=== PATIENT | male | born 1950 | race Caucasian/White ===

== ENCOUNTER → 2019-04-21 12:02 | Outpatient (BNVA) | payer MEDICARE, OTHER, SELFPAY | PROVIDERS: Family Provider Internal Medicine; PCP Internal Medicine; Visit Provider Podiatrist Foot & Ankle Surgery | DX: M19.171 Post-traumatic osteoarthritis, right ankle and foot (principal) | CPT/HCPCS: 73610 ==

== ENCOUNTER 2020-03-22 12:00 | Outpatient (CLI) | payer MEDICARE, OTHER, SELFPAY | END 2020-03-22 12:01 | disposition home or self-care (01) | LOC: SLEEP 03-23 11:21 | PROVIDERS: Family Provider Internal Medicine; PCP Internal Medicine; Visit Provider Internal Medicine | DX: G47.10 Hypersomnia, unspecified (principal) | CPT/HCPCS: G0399 ==

== ENCOUNTER 2020-04-17 07:06 | Outpatient (CLI) | payer MEDICARE, OTHER, SELFPAY ==
--- NOTE | 2020-04-17 07:13 | USCV_ITS ---
MaliAayush Age: 69 Gender: M : 1950 Exam Date: 04/17/2020 07:20 Ordering Phys: Checo Garcia DO Technologist: Minesh Bailey Exam Location: [facility] [place] Indication: CP BP: 120 / 70 HR: 60 Rhythm: Sinus Technical Quality: Fair MEASUREMENTS (Male / Female) Normal Values 2D ECHO LV Diastolic Diameter PLAX 4.0 cm 4.2 - 5.9 / 3.9 - 5.3 cm LV Systolic Diameter PLAX 2.2 cm IVS Diastolic Thickness 0.9 cm 0.6 - 1.0 / 0.6 - 0.9 cm IVS Systolic Thickness 1.4 cm LVPW Diastolic Thickness 1.0 cm 0.6 - 1.0 / 0.6 - 0.9 cm LVPW Systolic Thickness 1.3 cm LVOT Diameter 2.1 cm LV Ejection Fraction 2D Teich 78.2 % LV Ejection Fraction MOD 2C 53.6 % LV Ejection Fraction 2C AL 53.3 % LA Diameter 3.7 cm LA Width 4.2 cm LA Height 5.7 cm RA Width 4.2 cm RA Height 5.5 cm Aorta at Sinotubular Diameter 2.4 cm M-MODE LV Diastolic Diameter MM 5.8 cm 4.2 - 5.9 / 3.9 - 5.3 cm LV Systolic Diameter MM 3.9 cm LV Ejection Fraction MM Teich 60.9 % IVS Diastolic Thickness MM 1.0 cm 0.6 - 1.0 / 0.6 - 0.9 cm IVS Systolic Thickness MM 1.7 cm LVPW Diastolic Thickness MM 1.2 cm 0.6 - 1.0 / 0.6 - 0.9 cm LVPW Systolic Thickness MM 1.9 cm RV Diastolic Diameter MM 1.1 cm Aortic Annulus Diameter 3.1 cm LA Ao Ratio MM 1.2 MV E Point Septal Separation 0.9 cm DOPPLER AV Peak Velocity 106.0 cm/s LVOT Peak Velocity 94.0 cm/s AV Area Cont Eq vti 2.8 cm squared AV Area Cont Eq pk 3.0 cm squared MV Area PHT 5.0 cm squared Mitral E to A Ratio 1.3 MV E' Velocity 43.0 cm/s Mitral E to MV E' Ratio 6.2 Mitral E to LV E' Lateral Ratio 5.8 Mitral E to LV E' Septal Ratio 6.6 TR Peak Velocity 186.3 cm/s TR Peak Gradient 13.9 mmHg TV Peak E Velocity 73.0 cm/s Right Atrial Pressure 3.0 mmHg Pulmonary Artery Systolic Pressu 16.9 mmHg PV Peak Velocity 103.0 cm/s FINDINGS Left Ventricle Normal left ventricular size and systolic function, EF 63 %. No regional wall motion abnormalities. Right Ventricle Normal right ventricular size and systolic function. Right Atrium The right atrium is normal in size. Left Atrium The left atrium is normal in size. Mitral Valve Trace to mild mitral regurgitation Aortic Valve Structurally normal aortic valve without significant sclerosis or stenosis. There is no aortic regurgitation. Tricuspid Valve Trace tricuspid valve regurgitation. Pulmonic Valve Pulmonic valve not well visualized. Pericardium Normal pericardium without effusion. Aorta Normal aortic annulus size. CONCLUSIONS Normal left ventricular size and systolic function, EF 63 %. No regional wall motion abnormalities. Trace to mild mitral regurgitation. Trace tricuspid valve regurgitation. There is no pericardial effusion. There are no intracardiac masses. No previous study is available for comparison. Compared to study from 03/26/2015, there may not be a significant change Dr Abimbola Muñoz MD FAC (Electronically Signed) Final Date: 17 April 2020 14:23 S
[2020-04-17 08:09] VITALS: BMI 30.8
--- NOTE | 2020-04-17 08:12 | NMCV_ITS ---
NM jenni perf SPECT r/s* [id number] Aayush Samson Age: 69 Gender: M : 1950 Exam Date: 04/17/2020 08:12 Ordering Phys: Checo Garcia DO Technologist: NESHA Mcfarland Exam Location: [facility] Indications: SHORTNESS OF BREATH ON EXERTION STRESS TEST Please see separate stress test report in [facility] for full findings IMAGE PROTOCOL Rest/Stress 1 Lexiscan Day Radiopharmaceutical Dose (mCi) Administration Site Administered by Rest: Tc-99m 11.0 IV NESHA Mcfarland Sestamibi Stress:Tc-99m 32.6 IV NESHA Capone Sestamibi Rest: 17-Apr-2020 60 Discovery 630 Stress: 17-Apr-2020 30 Discovery 630 0.4mg Lexiscan. Images obtained in supine and prone position. SPECT RESULTS Technical Quality: Excellent Raw Data Analysis: Normal Image Corrections: No attenuation or motion correction applied Summed Stress Score: 2 Summed Rest Score: 2 Summed Difference Score: 0 PERFUSION FINDINGS There is a small area of fixed perfusion defect in the apical lateral area. No evidence of ischemia is seen FUNCTIONAL RESULTS (calculated via Gated SPECT) Stress Image LV EF (%): 66 Stress EDV (mL):107 TID: 1.19 Stress ESV (mL):36 FUNCTIONAL FINDINGS: There is normal left ventricular systolic function. IMPRESSIONS 1. There is a small, fixed perfusion defect in the apical lateral area. This improves on stress. Likely artifact 2. No evidence of reversibility is seen. No ischemia present. 3. LV systolic function is normal Regino Felix MD (Electronically Signed) Final Date: 17 April 2020 12:50 S
--- NOTE | 2020-04-17 08:12 | ECG_ITS ---
[facility] Test Date: 2020-04-17 Pat Name: Aayush Samson Department: Room: Gender: Male Infection Control Nurse: : 1950 Requested By: Checo Gee Order Number: [id number] Trujillo MD: Regino Felix M.D. Interpretive Statements NAME OF STUDY: LEXISCAN SESTAMIBI STRESS TEST INDICATION: [Shortness of Breath, ] Procedure: At the baseline, the blood pressure was 125/61 mmHg,with a heart rate of 49 bpm. The electrocardiogram showed a sinus bradycardia, normal axis with normal ST and T's. The Lexiscan was infused over a duration of 20 seconds. A total of 0.4 mg of Lexiscan was infused. The stress phase was continued for a total of 5 minutes. Heart rate at the end of stress phase was 61 bpm, with a blood pressure of 119/49 mmHg. The EKG at the peak infusion revealed sinus rhythm with no significant ST-T wave changes. Sestamibi was injected 20 seconds after Lexiscan infusion. Blood pressure at the end of recovery phase was 119/41 mmHg, with a heart rate of 60 bpm. Conclusion: 1. Normal EKG response to Lexiscan infusion. 2. No Lexiscan induced chest pain or cardiac arrhythmia. 3. Normal blood pressure and heart rate response. 4. Sestamibi/sestamibi perfusion scan pending; see separate report. Electronically Signed On 04-28-2020 9:50:22 TALENT ACQUISITION MANAGER by Regino Felix M.D. [id number]
[2020-04-17] MEDS: regadenoson 0.4 Mg/5 ml Syringe IVP (09:50)
[2020-04-17 10:04] VITALS: BP 145/61; PULSE 60
== END 2020-04-17 07:07 | disposition home or self-care (01) ==
PROVIDERS: PCP Internal Medicine; Visit Provider Internal Medicine
DX: R06.02 Shortness of breath (principal); R07.9 Chest pain, unspecified; I08.1 Rheumatic disorders of both mitral and tricuspid valves
CPT/HCPCS: 78452; 93017; 93306; A9500; J2785

== ENCOUNTER → 2021-08-08 08:24 | Outpatient (BNVA) | payer MEDICARE, OTHER, SELFPAY | PROVIDERS: PCP Internal Medicine; Visit Provider Internal Medicine Pulmonary Disease | DX: G47.33 Obstructive sleep apnea (adult) (pediatric) (principal); R00.1 Bradycardia, unspecified; I10 Essential (primary) hypertension; E11.8 Type 2 diabetes mellitus with unspecified complications; E78.5 Hyperlipidemia, unspecified | CPT/HCPCS: 99214 ==

== ENCOUNTER 2022-10-28 18:06 | Emergency (ER) | payer MEDICARE, OTHER, SELFPAY ==
[2022-10-28 18:11] VITALS: BP 139/58; PULSE 85; RESP 12; TEMP 37.3; O2SAT 94; BMI 27.8
--- NOTE | 2022-10-28 18:20 | XRR_ITS ---
PROCEDURE INFORMATION: Exam: XR Chest Exam date and time: 10/28/2022 6:31 PM Age: 72 years old Clinical indication: Fever TECHNIQUE: Imaging protocol: Radiologic exam of the chest. Views: 1 view. COMPARISON: CR XR chest 1V [id number] 08/01/2016 11:59 AM FINDINGS: Lungs: There is no consolidation. Pleural spaces: No pleural effusion or pneumothorax. Heart/Mediastinum: Subcentimeter calcified granulomata lymph nodes scattered throughout both lungs. The heart and mediastinum are normal in size. Bones/joints: Unremarkable. XR/XR chest 1V portable [id number] IMPRESSION: 1. No acute findings. 2. Subcentimeter calcified granulomata or lymph nodes scattered throughout both lungs, stable from the comparison study.
--- NOTE | 2022-10-28 18:22 | W.ED.GENADLT ---
HPI - General Adult General: Chief complaint: General Medical Stated complaint: chills Time Seen by Provider: 10/28/22 18:20 History of Present Illness: 72-year-old male patient comes in today with chills for the last 3 hours. Patient reports no other symptoms. Patient denies any recent exposure to illness. Patient has recently started gabapentin 100 mg at bedtime 3 days ago. Patient reports some body aches. Patient denies any tick bites. Patient denies cough or urinary difficulty. Patient denies nausea, vomiting, diarrhea, or constipation. Patient does have a history of diabetes mellitus, hypertension, and high cholesterol. 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 Associated symptoms: Deny chest pain, dyspnea, headache(s) or rash Review of Systems General: Reports: 10 or more systems reviewed and unremarkable except in HPI and below Const: Reports: chills and body aches Eyes: Denies: change in vision ENMT: Denies: throat pain Card: Denies: chest pain Resp: Denies: dyspnea GI: Denies: abdominal pain : Denies: difficulty urinating Skin/Breast: Denies: rash Neuro: Denies: headache(s) PFS ED PFSH: Medical History Benign essential hypertension Diabetes mellitus Mixed hyperlipidemia Family History Mother Diabetes Denies family history of CAD (coronary artery disease) Clotting disorder Dementia Hyperlipidemia Psychiatric illness Chronic kidney disease (CKD) Suicide Anesthesia complication Bleeding disorder Family history of premature coronary artery disease Lung disease Cancer Hypertension Stroke Social History Smoking and tobacco status: never smoked Second hand smoke exposure: No Smoking risk assessment/counseling performed?: Yes Alcohol intake: current Desire information about alcohol rehabilitation?: No Counseling given: No Substance/Drug Use: never Desire information about substance/drug rehabilitation?: No Counseling given: No Lives independently: Yes Household members: spouse Marital status: service: Yes Current occupational status: employed Pets and animals: Yes Do you think of yourself as: Straight/Heterosexual Current gender identity: Male Physical Exam Const: COMMON NORMALS: alert HENMT: HEAD & SCALP: not normal to inspection THROAT: posterior oropharynx normal Eye: GENERAL EYE: appearance normal, both eyes and all related structures Neck/C-Spine: COMMON NORMALS: full ROM and no meningeal signs Resp: COMMON NORMALS: normal respiratory effort and clear to auscultation bilaterally AUSCULTATION: clear to auscultation bilaterally Cardio: COMMON NORMALS: regular rate and regular rhythm RATE: regular rate RHYTHM: regular rhythm GI: COMMON NORMALS: Soft to palpation and non-tender PALPATION: Yes Soft to palpation Extremity: RIGHT LOWER EXTREMITY: Yes foot & digits (Arthritic, deformed chronic) Neuro: SENSORIUM/ORIENTATION: Yes alert MENINGEAL SIGNS: Yes no meningeal signs Skin: COMMON NORMALS: turgor normal GENERAL SKIN EXAM: turgor normal Course Vital Signs: Vital signs: Vital Signs Temperature 99.1 F 10/28/22 18:11 Pulse Rate 85 10/28/22 18:11 Respiratory Rate 12 10/28/22 18:11 Blood Pressure 139/58 10/28/22 18:11 Pulse Oximetry 94 10/28/22 18:11 Oxygen Delivery Me thod Room Air 10/28/22 18:11 MDM - General Adult Medical Decision Making 72-year-old male patient comes in today for complaints of chills for the last 3 hours. Patient appears nontoxic. Respirations are even lungs are clear to auscultation. Abdomen soft nontender. Patient denies any signs of illness. Patient has recently been started on gabapentin 100 mg daily. Differential diagnosis includes but not limited to viral illness, adverse drug effect, tickborne illness, anxiety, UTI, pneumonia, fever of unknown source. Chest x-ray was unremarkable. CBC showed a mild elevation and white blood cell count at 13,000. CRP was 15. Remainder of labs were unremarkable. COVID antigen test was negative. Urinalysis was clean. Outstanding labs included a respiratory 2 panel, and a tick panel. At this time there is no signs of severe illness and patient reports no recent tick bites. Recommend recheck with primary care in 2 to 3 days for recheck. Also recommended holding gabapentin for the next 2 days to see if that would resolve symptoms. Patient exhibited no high temperature in the ER. Patient reported understanding of care plan for supportive care and need for follow-up. Patient understood to return to ER for worsening symptoms such as nausea vomiting, blood in vomit or stool, or severe shortness of breath or new concerns. Lab Data 10/28/22 18:28 10/28/22 18: Radiology Impressions Chest X-Ray 10/28/22 18:20 IMPRESSION: 1. No acute findings. 2. Subcentimeter calcified granulomata or lymph nodes scattered throughout both lungs, stable from the comparison study. Laboratory Results WBC 13.9 10^3/uL (4.0-10.0) H 10/28/22 18: RBC 5.03 10^6/uL (4.1-5.3) 10/28/22: Hgb 15.8 g/dL (11.7-16.6) 10/28/22: Hct 46.6 % (42.0-52.0) 10/28/22 MCV 92.6 fl (80-94) 10/28/22 MCH 31.4 pg (28.0-34.0) 10/28/22 MCHC 33.9 g/dL (30.0-36.0) 10/28/22 RDW 12.4 % (12.1-15.1) 10/28/22 Plt Count 170 10^3/cmm (130-400) 10/28/22 MPV 9.5 fL (7.4-10.4) 10/28/22 Neut % (Auto) 78.1 % 10/28/22: Lymph % (Auto) 14.2 % 10/28/22: [place] % (Auto) 6.3 % 10/28/22 Eos % (Auto) 0.9 % 10/28/22: Baso % (Auto) 0.2 % 10/28/22 Neut # (Auto) 10.88 10^3/uL (1.8-7.7) H 10/28/22: Lymph # (Auto) 2.0 10^3/uL (0.8-4.8) 10/28/22 [place] # (Auto) 0.9 10^3/uL (0.2-0.9) 10/28/22: Eos # (Auto) 0.1 10^3/uL (0.0-0.8) 10/28/22 18: Baso # (Auto) 0.0 10^3/uL (0.0-0.1) 10/28/22 18: Nucleated RBC % (auto) 0 % 10/28/22 18 Nucleated RBCs # 0.0 /100WBC 10/28/22 18: Sodium 137 mmol/L (136-145) 10/28/22 18: Potassium 3.9 mmol/L (3.5-5.1) 10/28/22: Chloride 101 mmol/L (98-107) 10/28/22 18: Carbon Dioxide 24 mmol/L (22-29) 10/28/22 Anion Gap 15.9 (5-19) 10/28/22 BUN 21 mg/dL (8-23) 10/28/22 18 Creatinine 1.0 mg/dL (0.7-1.2) 10/28/22 18 GFR Calculation Not Reportable 10/28/22 Glucose 100 mg/dL (65-115) 10/28/22 18: Calculated Osmolality 287 mOsm/kg (285-295) 10/28/22 18: Calcium 9.4 mg/dL (8.5-10.5) 10/28/22 18: Total Bilirubin 1.1 mg/dL (0.15-1.2) 10/28/22 18: AST 23 U/L (0-40) 10/28/22: ALT 25 U/L (0-41) 10/28/22 18: Alkaline Phosphatase 73 U/L (40-130) 10/28/22 18: Creatine Kinase 64 U/L (39-308) 10/28/22 18: C-Reactive Protein 15.3 mg/L (0.0-4.9) H 10/28/22 18: Total Protein 7.1 g/dL (6.6-8.7) 10/28/22 18: Albumin 4.3 g/dL (3.5-5.2) 10/28/22 18: Globulin 2.8 g/dL (1.3-4.6) 10/28/22 18: Urine Color Yellow (Yellow) 10/28/22 18:20 Urine Appearance Clear (CLEAR) 10/28/22 18:20 Urine pH 7 (5-7) 10/28/22 18:20 Ur Specific [place] 1.000 (1.005-1.030) L 10/28/22 18:20 Urine Protein Neg (Negative) 10/28/22 18:20 Urine Glucose (UA) Norm (Normal) 10/28/22 18:20 Urine Ketones Negative (Negative) 10/28/22 18:20 Urine Blood Neg (Negative) 10/28/22 18:20 Urine Nitrate Negative (Negative) 10/28/22 18:20 Urine Bilirubin Neg (Negative) 10/28/22 18:20 Urine Urobilinogen Norm mg/dL (Negative) 10/28/22 18:20 Ur Leukocyte Esterase Negative (Negative) 10/28/22 18:20 SARS-CoV-2 Ag (Rapid) negative (Negative) 10/28/22 18:30 Discharge Plan Discharge Patient Disposition: Home Clinical Impression: Fever and chills Condition: Stable Prescriptions: No Action aspirin 81 mg tablet,delayed release (DR/EC) 81 mg PO ONCE carvedilol [Coreg] 3.125 mg tablet 3.125 mg PO BID nitroglycerin [Nitrostat] 0.4 mg tablet, sublingual 0.4 mg SUBLINGUAL Q5M PRN vitamin B complex [B Complex-Vitamin B12] Tablet 1 tab PO ONCE ezetimibe [Zetia] 10 mg tablet 10 mg PO ONCE PreserVision AREDS-2 [id number] st-hldh-lr-mg capsule 1 tab PO BID Rx Instructions: administer with meals lisinopril 10 mg tablet 10 mg PO DAILY azelastine 137 mcg (0.1 %) aerosol,spray 1 spray intranasal BID Rx Instructions: administer into each nostril Discharge Orders: Discharge ED (Routine); Ordered 10/28/22 Ordered By: Thai De Anda Referrals: Checo Garcia DO [Primary Care Provider] - Discharge Diet: Usual diet Discharge Activity: Increase activity as tolerated Patient Instructions: Fever in Adults (ED) Activity Restrictions/Additional Instructions: Outstanding labs include tick panel and viral respiratory 2 panel. At this time drink plenty of water and fluids. Use acetaminophen and ibuprofen as needed for pain and fever. Follow-up with primary care in 2 to 3 days for recheck. Hold gabapentin for 2 to 3 days to see if symptoms resolve. Most likely this is a viral syndrome that run its course in 3 to 5 days however gabapentin has been known to have a common reaction of fever. Holding the gabapentin should have the symptoms resolved within 48 hours. If symptoms persist after the 48 hours more likely is a virus. Return to emergency department for worsening symptoms such as inability to hold fluids down, nausea or vomiting, blood in vomit or stool, or shortness of breath. Coding Level of Care Code ED Bushel Girl for Jessy Baird
[2022-10-28 18:41] LABS: Add Urine Microscopic? NO; Charge for UA Resulting for Rev
[2022-10-28 18:50] LABS: Urine Appearance Clear (CLEAR); Urine Color Yellow (Yellow); pH Urine 7 (5-7)
[2022-10-28 18:51] LABS: Bilirubin Urine Neg (Negative); Blood Urine Neg (Negative); Glucose Urine UA Norm (Normal); Ketones Urine Negative (Negative); Leukocyte Esterase Urine Negative (Negative); Nitrate Urine Negative (Negative); Protein Urine Neg (Negative); Urobilinogen Urine Norm (Negative)
[2022-10-28 18:53] LABS: Basophils % 0.2 %; Eosinophils # 0.1 10^3/uL (0.0-0.8); Eosinophils % 0.9 %; Hematocrit 46.6 % (42.0-52.0); Hemoglobin 15.8 g/dL (11.7-16.6); Lymphocytes % 14.2 %; Mean Corpuscular HGB Conc 33.9 g/dL (30.0-36.0); Mean Corpuscular Hemoglobin 31.4 pg (28.0-34.0); Mean Corpuscular Volume 92.6 fl (80-94); Mean Platelet Volume 9.5 fL (7.4-10.4); Monocytes # 0.9 10^3/uL (0.2-0.9); Monocytes % 6.3 %; Neutrophils # 10.88 10^3/uL (1.8-7.7); Neutrophils % 78.1 %; Nucleated Red Blood Cells % 0 %; Platelet Count 170 10^3/cmm (130-400); Red Blood Count 5.03 10^6/uL (4.1-5.3); Red Cell Distribution Width 12.4 % (12.1-15.1); White Blood Count 13.9 10^3/uL (4.0-10.0)
[2022-10-28 19:06] LABS: Alanine Aminotransferase 25 U/L (0-41); Albumin Level 4.3 g/dL (3.5-5.2); Alkaline Phosphatase 73 U/L (40-130); Anion Gap 15.9 (5-19); Aspartate Amino Transferase 23 U/L (0-40); Blood Urea Nitrogen 21 mg/dL (8-23); C Reactive Protein 15.3 mg/L (0.0-4.9); Calcium 9.4 mg/dL (8.5-10.5); Carbon Dioxide 24 mmol/L (22-29); Chloride 101 mmol/L (98-107); Creatine Phosphokinase 64 U/L (39-308); Globulin 2.8 g/dL (1.3-4.6); Glucose 100 mg/dL (65-115); Osmolality Calculated 287 mOsm/kg (285-295); Potassium 3.9 mmol/L (3.5-5.1); Sodium 137 mmol/L (136-145); Total Bilirubin 1.1 mg/dL (0.15-1.2); Total Protein 7.1 g/dL (6.6-8.7)
[2022-10-28 19:08] LABS: SARS Covid-2 Antigen negative (Negative)
[2022-10-28 19:38] VITALS: BP 119/58; PULSE 68; RESP 16; O2SAT 99
[2022-10-28 21:37] LABS: Adenovirus Not Detected (NOT DETECT); Chlamydia Pneumoniae Not Detected (NOT DETECT); Coronavirus 229E,HKU1,NL63,OC4 Not Detected (NOT DETECT); Human Metapneumovirus Not Detected (NOT DETECT); Human Rhinovirus/Enterovirus Not Detected (NOT DETECT); Influenza A Not Detected (NOT DETECT); Influenza A H1 Not Detected (NOT DETECT); Influenza A H1-2009 Not Detected (NOT DETECT); Influenza A H3 Not Detected (NOT DETECT); Influenza B Not Detected (NOT DETECT); Mycoplasma Pneumoniae Not Detected (NOT DETECT); Parainfluenza Virus Type 1 Not Detected (NOT DETECT); Parainfluenza Virus Type 2 Not Detected (NOT DETECT); Parainfluenza Virus Type 3 Not Detected (NOT DETECT); Parainfluenza Virus Type 4 Not Detected (NOT DETECT); Respiratory Syncytial Virus A Not Detected (NOT DETECT); Respiratory Syncytial Virus B Not Detected (NOT DETECT); SARS-COV-2 Not Detected (NOT DETECT)
[2022-10-30 13:25] LABS: Lyme AB Screen <0.90 index
[2022-11-02 15:19] LABS: E. Chaffeensis AB IGG <1:64; E. Chaffeensis AB IGM <1:20
[2022-11-04 16:54] LABS: RMSF IGG NOT DETECTED; RMSF IGM NOT DETECTED
== END 2022-10-28 19:40 | disposition home or self-care (01) ==
PROVIDERS: Emergency Provider Nurse Practitioner Family; PCP Internal Medicine
DX: R50.9 Fever, unspecified (principal); Z20.822 Contact with and (suspected) exposure to COVID-19; I10 Essential (primary) hypertension; E11.9 Type 2 diabetes mellitus without complications; E78.2 Mixed hyperlipidemia
CPT/HCPCS: 71045; 80053; 81003; 82550; 85025; 86140; 86618; 86666; 86757; 87426; 87486; 87581; 87633; 96372; 99284; J0696

== ENCOUNTER 2022-10-28 21:59 | Emergency (ER) | payer MEDICARE, OTHER, SELFPAY ==
--- NOTE | 2022-10-28 22:08 | ED_ITS ---
HPI - Fever General: Chief Complaint: Skin/Abscess/Foreign Body Stated Complaint: Cellulitius\Pain Time Seen by Provider: 10/28/22 22:00 History of Present Illness: 72-year-old male patient was seen earlier this evening for fever. Patient had just started a fever about 3 hours prior to arrival to the ER. Patient family reports the patient was getting ready for bed and found an area of redness which made them concerned for cellulitis. Patient was come back in for to start antib iotics. Review of Systems Skin/Breast: Reports: erythema PFSH ED PFSH: Medical History Benign essential hypertension Diabetes mellitus Mixed hyperlipidemia Family History Mother Diabetes Denies family history of CAD (coronary artery disease) Clotting disorder Dementia Hyperlipidemia Psychiatric illness Chronic kidney disease (CKD) Suicide Anesthesia complication Bleeding disorder Family history of premature coronary artery disease Lung disease Cancer Hypertension Stroke Social History Smoking and tobacco status: never smoked Second hand smoke exposure: No Smoking risk assessment/counseling performed?: Yes Alcohol intake: current Desire information about alcohol rehabilitation?: No Counseling given: No Substance/Drug Use: never Desire information about substance/drug rehabilitation?: No Counseling given: No Lives independently: Yes Household members: spouse Marital status: service: Yes Current occupational status: employed Pets and animals: Yes Do you think of yourself as: Straight/Heterosexual Current gender identity: Male Physical Exam Const: COMMON NORMALS: alert HENMT: COMMON NORMALS: normocephalic HEAD & SCALP: normocephalic Neck/C-Spine: COMMON NORMALS: full ROM Resp: COMMON NORMALS: normal respiratory effort Cardio: COMMON NORMALS: regular rate RATE: regular rate GI: COMMON NORMALS: non-tender Extremity: RIGHT LOWER EXTREMITY: Yes lower leg (Patient has redness and mild induration to the right lower leg) Neuro: SENSORIUM/ORIENTATION: Yes alert Course Vital Signs: Vital signs: Vital Signs Temperature 98.4 F 10/28/22 22:09 Pulse Rate 71 10/28/22 22:09 Respiratory Rate 16 10/28/22 22:09 Blood Pressure 118/56 10/28/22 22:09 Pulse Oximetry 93 10/28/22 22:09 Oxygen Delivery Me thod Room Air 10/28/22 22:09 MDM - Fever Medical Decision Making 72-year-old male patient comes in today for recheck after being here earlier for fever. Patient was getting ready for bed and had disrobed and taken off his socks noticing an area of redness to his right lower leg. Patient then recalled that he had cellulitis to that leg twice in the past which has been treated with antibiotics. Patient believes that he is developing cellulitis again. Differential diagnosis includes not limited to viral syndrome, tickborne illness, cellulitis. I agree with patient he has an area of redness to the right lower extremity. No palpable mass or tenderness is noted in the popliteal angle of the knee. Tenderness is in the area of redness to the right medial aspect of the leg. Distal pulses intact. We will give patient a gram of Rocephin to get him started on antibiotics and will continue Augmentin for the next 7 days. Patient knows to follow-up with primary care or return to the ER for worsening symptoms. Discharge Plan Discharge Patient Disposition: Home Clinical Impression: Cellulitis Qualifiers: Site of cellulitis: extremity Site of cellulitis of extremity: lower extremity Laterality: right Qualified Code(s): L03.115 - Cellulitis of right lower limb Condition: Stable Prescriptions: New amoxicillin-pot clavulanate 875-125 mg tablet 1 tab PO BID Qty: 14 1RF No Action aspirin 81 mg tablet,delayed release (DR/EC) 81 mg PO ONCE carvedilol [Coreg] 3.125 mg tablet 3.125 mg PO BID nitroglycerin [Nitrostat] 0.4 mg tablet, sublingual 0.4 mg SUBLINGUAL Q5M PRN vitamin B complex [B Complex-Vitamin B12] Tablet 1 tab PO ONCE ezetimibe [Zetia] 10 mg tablet 10 mg PO ONCE PreserVision AREDS-2 [id number] kd-foeh-rg-mg capsule 1 tab PO BID Rx Instructions: administer with meals lisinopril 10 mg tablet 10 mg PO DAILY azelastine 137 mcg (0.1 %) aerosol,spray 1 spray intranasal BID Rx Instructions: administer into each nostril Discharge Orders: Discharge ED (Routine); Ordered 10/28/22 Ordered By: Thai De Anda Referrals: Checo Garcia DO [Primary Care Provider] - Discharge Diet: Usual diet Discharge Activity: Increase activity as tolerated Patient Instructions: Cellulitis (ED) Activity Restrictions/Additional Instructions: Home and rest. Drink plenty of water and fluids. Elevate lower extremity as much as possible. Take antibiotic 1 tablet twice a day for the next 7 days. Use acetaminophen and/or ibuprofen for pain and fever. Follow-up with primary care in 3 to 5 days for recheck. Return to emergency department for worsening symptoms such as fever greater than 100.4, inability to hold fluids down, worsening redness and swelling of the extremity. Coding Level of Care Code ED Container Repairer for Jessy Baird
[2022-10-28 22:09] VITALS: BP 118/56; PULSE 71; RESP 16; TEMP 36.9; O2SAT 93; BMI 27.8
[2022-10-28] MEDS: cefTRIAXone 1,000 MG in water for injection-sterile 2.1 ML 999 MG IM (23:03)
[2022-10-28 23:10] VITALS: BP 126/51; PULSE 57; RESP 16; O2SAT 16
== END 2022-10-28 23:24 | disposition home or self-care (01) ==
PROVIDERS: Emergency Provider Nurse Practitioner Family; PCP Internal Medicine
DX: L03.115 Cellulitis of right lower limb (principal); I10 Essential (primary) hypertension; E11.9 Type 2 diabetes mellitus without complications; E78.2 Mixed hyperlipidemia
CPT/HCPCS: 96372; 99284; J0696

== ENCOUNTER → 2023-06-10 13:52 | Outpatient (BNVA) | payer MEDICARE, OTHER, SELFPAY | PROVIDERS: PCP Internal Medicine; Referring Provider Internal Medicine; Visit Provider Internal Medicine | DX: I49.1 Atrial premature depolarization (principal); I49.3 Ventricular premature depolarization; I47.10 Supraventricular tachycardia, unspecified | CPT/HCPCS: 93225 ==

== ENCOUNTER 2023-06-18 16:57 | Observation (INO) | payer MEDICARE, OTHER, SELFPAY ==
[2023-06-18] VITALS (7 sets, daily range): BP systolic 125–162; BP diastolic 53–66; PULSE 48–59; RESP 16–17; TEMP 36.9–37.2; O2SAT 95–100; BMI 26.5; BMI 27.7
--- NOTE | 2023-06-18 17:08 | XRR_ITS ---
PROCEDURE INFORMATION: Exam: XR Chest Exam date and time: 06/18/2023 5:45 PM Age: 72 years old Clinical indication: Chest wall pain; Additional info: Cp TECHNIQUE: Imaging protocol: Radiologic exam of the chest. Views: 1 view. COMPARISON: CR XR chest 1V portable [id number] 10/28/2022 6:31 PM FINDINGS: Lungs: Bilateral calcified granulomas redemonstrated. No focal consolidation. Pleural spaces: Unremarkable. No pleural effusion. No pneumothorax. Heart/Mediastinum: Unremarkable. No cardiomegaly. Bones/joints: Unremarkable. XR/XR chest 1V portable [id number] IMPRESSION: No focal consolidation.
--- NOTE | 2023-06-18 17:18 | ECG_ITS ---
[facility] Test Date: 2023-06-18 Pat Name: Dave Samson Department: Room: Gender: Male Communications Supervisor: : 1950 Requested By: True Rosales Order Number: [id number] Cassandra MD: Abimbola Muñoz M.D. Measurements Intervals [place] Rate: 51 P: 0 MN: 0 QRS: 49 QRSD: 110 T: 46 QT: 433 QTc: 399 Interpretive Statements Sinus bradycardia Some early repolarization changes Baseline artifact ST ELEVATION, PROBABLY EARLY REPOLARIZATION [ST ELEVATION WITH NORMALLY INFLECTED T-WAVE] MODERATE ST DEPRESSION [0.05+ mV ST DEPRESSION] Compared to ECG 08/13/2016 10:12:57 ST (T wave) deviation now present Early repolarization now present Electronically Signed On 06-19-2023 17:31:24 CLUTCH OPERATOR by Abimbola Muñoz M.D. [id number]
--- NOTE | 2023-06-18 17:22 | ED_ITS ---
HPI - Weakness 2 General: Chief complaint: Weakness Stated complaint: low heart rate, dizzy, weakness Time Seen by Provider: 06/18/23 17:07 Source: patient Mode of arrival: ambulatory Limitations: no limitations History of Present Illness: 72-year-old male states that he has been feeling very fatigued and weak over the last 2 to 3 days he states his heart rate has been quite slow it has been in the low 40s he states he is felt lightheaded and had near syncopal events. He denies any chest pain denies any cough or fever. It is listed that he is on carvedilol but he states he does not take carvedilol at home. Associated symptoms: Denies chest pain, chills, fever(s), headache(s), nausea or vomiting Review of Systems 2 Const: Reports: fatigue and malaise; Denies: fever(s), chills, body aches or change in appetite Eyes: Denies: blurry vision or eye discomfort ENMT: Denies: throat pain or dental pain Card: Reports: irregular heart rhythm; Denies: chest pain Resp: Denies: dyspnea GI: Denies: abdominal pain, nausea, vomiting or diarrhea Musc: Denies: neck pain or back pain Skin/Breast: Denies: rash Neuro: Denies: headache(s) PFSH ED 2 PFSH: Medical History Mixed hyperlipidemia Benign essential hypertension Diabetes mellitus Family History Mother Diabetes Denies family history of CAD (coronary artery disease) Clotting disorder Dementia Hyperlipidemia Psychiatric illness Chronic kidney disease (CKD) Suicide Anesthesia complication Bleeding disorder Family history of premature coronary artery disease Lung disease Cancer Hypertension Stroke Social History Smoking and tobacco/nicotine status: never used tobacco/nicotine Second hand smoke exposure: No Alcohol intake: current Substance/Drug Use: never Lives independently: Yes Household members: spouse Marital status: service: Yes Current occupational status: employed Pets and animals: Yes Do you think of yourself as: Straight/Heterosexual Current gender identity: Male Physical Exam 2 Const: COMMON NORMALS: patient oriented x3 HENMT: COMMON NORMALS: normocephalic and atraumatic HEAD & SCALP: n ormocephalic and atraumatic Eye: COMMON NORMALS: Equal, round and reactive pupils present and EOMs intact bilaterally PUPIL: Yes Equal, round and reactive pupils present Neck/C-Spine: COMMON NORMALS: full ROM and supple Chest: COMMONS NORMALS: normal inspection of the chest Resp: COMMON NORMALS: normal respiratory effort, No retractions, No use of accessory muscles and clear to auscultation bilaterally AUSCULTATION: clear to auscultation bilaterally Cardio: RATE: bradycardic Extremity: COMMON NORMALS: normal to inspection and full ROM Neuro: COMMON NORMALS: patient oriented x3, moves all extremities and no focal motor deficits Psych: COMMON NORMALS: mental status grossly normal, Normal thought process present and cooperative THOUGHT PROCESS: Normal thought process present Skin: COMMON NORMALS: no rashes or lesions noted and no wounds GENERAL SKIN EXAM: no rashes or lesions noted Course 2 Vital Signs: Vital signs: Vital Signs Temperature 98.5 F 06/18/23 17:00 Pulse Rate 50 L 06/18/23 18:28 Respiratory Rate 16 06/18/23 17:00 Blood Pressure 134/58 06/18/23 18:28 Pulse Oximetry 98 06/18/23 18:28 Oxygen Delivery Me thod Room Air 06/18/23 18:28 MDM - Weakness Medical Decision Making Patient presents here with bradycardia he is having symptomatic bradycardia with lightheadedness his spoke to cardiology Dr. Muñoz along with hospitalist will admit for observation. His blood pressure here has been stable Medical Records I reviewed the patient's medical records. Lab Data I reviewed the patient's lab results. 06/18/23 17:10 06/18/23 17:10 Radiology Impressions Chest X-Ray 06/18/23 17:08 IMPRESSION: No focal consolidation. Laboratory Results WBC 8.04 10^3/uL (3.29-11.43) 06/18/23 17:10 RBC 5.00 10^6/uL (3.85-5.65) 06/18/23 17:10 Hgb 15.70 g/dL (11.27-16.99) 06/18/23 17:10 Hct 46.7 % (37-53) 06/18/23 17:10 MCV 93.4 fl (82-101) 06/18/23 17:10 MCH 31.4 pg (27-33) 06/18/23 17:10 MCHC 33.6 g/dL (30-55) 06/18/23 17:10 RDW 12.3 % (12.1-15.1) 06/18/23 17:10 Plt Count 166 10^3/cmm (157-399) 06/18/23 17:10 MPV 9.3 fL (7.4-10.4) 06/18/23 17:10 Neut % (Auto) 40.8 % 06/18/23 17:10 Lymph % (Auto) 42.2 % 06/18/23 17:10 [place] % (Auto) 11.4 % 06/18/23 17:10 Eos % (Auto) 5.0 % 06/18/23 17:10 Baso % (Auto) 0.4 % 06/18/23 17:10 Neut # (Auto) 3.28 10^3/uL (1.8-7.7) 06/18/23 17:10 Lymph # (Auto) 3.4 10^3/uL (0.8-4.8) 06/18/23 17:10 [place] # (Auto) 0.9 10^3/uL (0.2-0.9) 06/18/23 17:10 Eos # (Auto) 0.4 10^3/uL (0.0-0.8) 06/18/23 17:10 Baso # (Auto) 0.0 10^3/uL (0.0-0.1) 06/18/23 17:10 Nucleated RBC % (auto) 0 % 06/18/23 17:10 Nucleated RBCs # 0.0 /100WBC 06/18/23 17:10 PT 13.70 SECONDS (12.1-14.9) 06/18/23 17:10 INR 1.02 (0.8-1.2) 06/18/23 17:10 Sodium 138 mmol/L (136-145) 06/18/23 17:10 Potassium 4.2 mmol/L (3.5-5.1) 06/18/23 17:10 Chloride 102 mmol/L (98-107) 06/18/23 17:10 Carbon Dioxide 28 mmol/L (22-29) 06/18/23 17:10 Anion Gap 12.2 (5-19) 06/18/23 17:10 BUN 25 mg/dL (8-23) H 06/18/23 17:10 Creatinine 1.0 mg/dL (0.7-1.2) 06/18/23 17:10 GFR Calculation Not Reportable 06/18/23 17:10 Glucose 94 mg/dL (65-115) 06/18/23 17:10 Calculated Osmolality 290 mOsm/kg (285-295) 06/18/23 17:10 Calcium 9.2 mg/dL (8.5-10.5) 06/18/23 17:10 Total Bilirubin 0.5 mg/dL (0.15-1.2) 06/18/23 17:10 AST 21 U/L (0-40) 06/18/23 17:10 ALT 24 U/L (0-41) 06/18/23 17:10 Alkaline Phosphatase 65 U/L (40-130) 06/18/23 17:10 Troponin T Baseline 20 ng/L (0-15) H 06/18/23 17:10 Total Protein 6.8 g/dL (6.6-8.7) 06/18/23 17:10 Albumin 4.5 g/dL (3.5-5.2) 06/18/23 17:10 Globulin 2.3 g/dL (1.3-4.6) 06/18/23 17:10 TSH 2.78 uIU/mL (0.27-4.20) 06/18/23 17:10 All radiology interpretation(s) finalized by discharge EKG Data EKG 1: I personally reviewed and interpreted this EKG as follows: EKG interpretation date: 06/18/23 EKG interpretation time: 17:18 Interpretation: atrial flutter with slow rvr hr [address] elevation qrs 110 qtc 408 Discharge Plan Discharge Patient Disposition: Placed in Observation Clinical Impression: Sinus bradycardia Condition: Stable Prescriptions: No Action aspirin 81 mg tablet,delayed release (DR/EC) 81 mg PO ONCE carvedilol [Coreg] 3.125 mg tablet 3.125 mg PO BID nitroglycerin [Nitrostat] 0.4 mg tablet, sublingual 0.4 mg SUBLINGUAL Q5M PRN vitamin B complex [B Complex-Vitamin B12] Tablet 1 tab PO ONCE ezetimibe [Zetia] 10 mg tablet 10 mg PO ONCE PreserVision AREDS-2 [id number] [id number]-mg capsule 1 tab PO BID Rx Instructions: administer with meals lisinopril 10 mg tablet 10 mg PO DAILY azelastine 137 mcg (0.1 %) aerosol,spray 1 spray intranasal BID Rx Instructions: administer into each nostril amoxicillin-pot clavulanate 875-125 mg tablet 1 tab PO BID Qty: 14 1RF Referrals: Checo Garcia DO [Primary Care Provider] - Coding Level of Care Code ED Forest Manager for g Brie
[2023-06-18 17:37] LABS: Basophils % 0.4 %; Eosinophils # 0.4 10^3/uL (0.0-0.8); Hematocrit 46.7 % (37-53); Lymphocytes # 3.4 10^3/uL (0.8-4.8); Lymphocytes % 42.2 %; Mean Corpuscular HGB Conc 33.6 g/dL (30-55); Mean Corpuscular Hemoglobin 31.4 pg (27-33); Mean Corpuscular Volume 93.4 fl (82-101); Mean Platelet Volume 9.3 fL (7.4-10.4); Monocytes # 0.9 10^3/uL (0.2-0.9); Monocytes % 11.4 %; Neutrophils # 3.28 10^3/uL (1.8-7.7); Neutrophils % 40.8 %; Nucleated Red Blood Cells % 0 %; Platelet Count 166 10^3/cmm (157-399); Red Cell Distribution Width 12.3 % (12.1-15.1); White Blood Count 8.04 10^3/uL (3.29-11.43)
[2023-06-18 17:41] LABS: INR 1.02 (0.8-1.2)
[2023-06-18 17:48] LABS: Troponin(5th) Baseline 20 ng/L (0-15)
[2023-06-18 17:59] LABS: Alanine Aminotransferase 24 U/L (0-41); Albumin Level 4.5 g/dL (3.5-5.2); Alkaline Phosphatase 65 U/L (40-130); Aspartate Amino Transferase 21 U/L (0-40); Blood Urea Nitrogen 25 mg/dL (8-23); Calcium 9.2 mg/dL (8.5-10.5); Carbon Dioxide 28 mmol/L (22-29); Chloride 102 mmol/L (98-107); Creatinine Clr Calc Pharmacy 71.9934; Globulin 2.3 g/dL (1.3-4.6); Glucose 94 mg/dL (65-115); Osmolality Calculated 290 mOsm/kg (285-295); Sodium 138 mmol/L (136-145); Thyroid Stimulating Hormone 2.78 uIU/mL (0.27-4.20); Total Bilirubin 0.5 mg/dL (0.15-1.2); Total Protein 6.8 g/dL (6.6-8.7)
[2023-06-18 18:15] LABS: Anion Gap 12.2 (5-19); Potassium 4.2 mmol/L (3.5-5.1)
[2023-06-18 18:38] LABS: Add Urine Microscopic? NO; Charge for UA Resulting for Rev
--- NOTE | 2023-06-18 19:08 | ECG_ITS ---
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 Measurements Intervals [place] Rate: 50 P: 72 [place]: 178 QRS: 50 QRSD: 102 T: 73 QT: 435 QTc: 400 Interpretive Statements SINUS BRADYCARDIA WITH SINUS ARRHYTHMIA SEPTAL MYOCARDIAL INFARCTION , OF INDETERMINATE AGE [40+ ms Q WAVE IN V1/V2] INTERPRETATION BASED ON A DEFAULT AGE OF 40 YEARS Compared to ECG 06/18/2023 17:18:35 Myocardial infarct finding now present Atrial flutter no longer present ST (T wave) deviation no longer present Early repolarization no longer present Electronically Signed On 06-19-2023 17:57:14 BANK CLERK by Abimbola Muñoz M.D. [id number] f
[2023-06-18 19:21] LABS: Bilirubin Urine Neg (Negative); Blood Urine Neg (Negative); Glucose Urine UA Norm (Normal); Ketones Urine Negative (Negative); Leukocyte Esterase Urine Negative (Negative); Nitrate Urine Negative (Negative); Protein Urine Neg (Negative); Urine Appearance Clear (CLEAR); Urine Color Yellow (Yellow); Urobilinogen Urine Norm (Negative); pH Urine 5 (5-7)
[2023-06-18 20:06] LABS: Troponin 5 2HR 18.76 ng/L (0-15)
[2023-06-18 20:11] LABS: Troponin 5 2HR Delta -1.24 ABS# (0-10)
--- NOTE | 2023-06-18 21:02 | P.CONIM_ITS ---
Providers/Reason For Consult 2 Consulting Physician/Specialty*: Van Muñoz MD/cardiology Reason for Consult*: Patient with complaints of dizziness/weakness. Bradycardia on the monitor Requesting Physician: Dr. English Attending Physician: Ricki English MD Primary Care Provider: Checo Garcia DO History of Present Illness History of Present Illness Dave Samson is a 72 year old male with a history of hypertension, dyslipidemia, sleep apnea, presents with complaints of dizziness/weakness/lightheadedness. This patient has a history of bradycardia with a heart rate in the 40s and 50s for the last few years. He has been having episodes of dizziness/weakness/lightheadedness which may last for a day or 2 and then gradually subsides. His heart rate was found to be in the 40s and 50s at that time. He never had any syncopal episodes. Never had any prolonged pauses. He had a recent Holter monitor which revealed the basic rhythm to be so normal sinus with an overall average heart rate of 61 bpm. The lowest heart rate was 40 bpm with the highest of 110 bpm. He had a frequent supraventricular ectopics accounting for 9% of total heartbeats. His symptoms of lightheadedness/dizziness were found to be associated with normal sinus/sinus arrhythmia/supraventricular ectopics He has a history of diabetic neuropathy. No history for hypothyroidism. No history for kidney disease, liver disease or bleeding disorders. He had 3 coronary angiograms and was found to have no significant blockages. He had a several stress test which were unremarkable. His symptoms seems to be progressively getting worse. He did not have any fever, chills or cough. No orthopnea or PND. No other specific complaints. Patient is a mother had a congestive heart failure. Father had myocardial infarction in his 70s. One of his brothers and a sister also had a heart disease and heart attacks in their 70s. No other relevant family history. Denies any smoking Abuse, alcohol abuse or substance abuse. Review of Systems 2 Narrative: CONSTITUTIONAL: Lethargy/weakness for the last couple of days EYES: No blurring of vision or other visual disturbances lately. ENT: No hoarseness of voice, auditory disturbances or sore throat. CARDIOVASCULAR: As mentioned above. RESPIRATORY: No significant cough. GASTROINTESTINAL: No hematemesis or melena. GENITOURINARY: No dysuria or hematuria. INTEGUMENTARY: No skin rashes or history of skin cancer. NEURO: No transient ischemic attacks or amaurosis. PSYCHIATRIC: No history of psychosis or major depression. HEMATOLOGIC: No bleeding disorders or significant anemia. ENDOCRINE: No history of polyuria or polydipsia. MUSCULOSKELETAL: No recent joint pain or swelling. ALLERGY/IMMUNOLOGY: As mentioned above. Medications/Allergies Home Medications Medication Instructions Recorded Confirmed Last Taken Type aspirin 81 mg tablet,delayed 81 mg PO ONCE 04/21/19 06/18/23 06/18/23 05:00 History release ezetimibe 10 mg tablet (Zetia) 10 mg PO ONCE 04/21/19 06/18/23 06/18/23 05:00 History nitroglycerin 0.4 mg sublingual 0.4 mg sublingual Q5M PRN Chest 04/21/19 06/18/23 06/18/23 05:00 History tablet (Nitrostat) Pain vitamin B complex (B 1 tab PO ONCE 04/21/19 06/18/23 06/18/23 05:00 History Complex-Vitamin B12 tablet) azelastine 137 mcg (0.1 %) nasal 1 spray intranasal BID 08/08/21 06/18/23 06/18/23 05:00 History spray aerosol gabapentin 200 mg PO BID 06/18/23 06/18/23 06/18/23 05:00 History metformin 250 mg PO BID 06/18/23 06/18/23 06/18/23 05:00 History meclizine 25 mg tablet 12.5 mg (1/2 x 25 mg) PO BID PRN 06/19/23 Unknown Rx dizziness #60 tabs Allergies Allergy/AdvReac Type Severity Reaction Status Date / Time No Known Allergies Allergy Verified 10/28/22 22:08 PFSH Acute 2 PFSH: Medical History Physiological tremor Mixed hyperlipidemia Benign essential hypertension Diabetes mellitus Surgical History History of ankle surgery Family History Mother Diabetes Denies family history of CAD (coronary artery disease) Clotting disorder Dementia Hyperlipidemia Psychiatric illness Chronic kidney disease (CKD) Suicide Anesthesia complication Bleeding disorder Family history of premature coronary artery disease Lung disease Cancer Hypertension Stroke Social History Smoking and tobacco/nicotine status: never used tobacco/nicotine Second hand smoke exposure: No Alcohol intake: current Substance/Drug Use: never Lives independently: Yes Household members: spouse Marital status: service: Yes Current occupational status: employed Pets and animals: Yes Do you think of yourself as: Straight/Heterosexual Current gender identity: Male Vitals/I&O/Wt Last Vital Signs Temp 98.5 F 06/18/23 17:00 Pulse 59 L 06/18/23 20:45 Resp 16 06/18/23 17:00 BP 159/64 06/18/23 20:45 Pulse Ox 95 06/18/23 20:45 O2 Del Method Room Air 06/18/23 20:45 Weight last 48 hrs Weight 185 lb Physical Exam 2 Narrative: GENERAL: The patient is alert and oriented times three. Not in any acute distress. HEENT: No significant pallor, icterus or lymphadenopathy.Oral cavity: There are no mucous membrane lesions. NECK: Trachea appears to be central. No masses noted. No JVD or thyromegaly appreciated. RESPIRATORY: Chest is symmetrical. No intercostals muscle retraction or any accessory muscle activation. There is no chest wall tenderness. Breath sounds are heard bilaterally. No rales or rhonchi heard. No evidence of any consolidation. BREASTS: Deferred. HEART: The heart sounds are normal. No S3 or S4. No significant murmurs. No pericardial rub ABDOMEN: No vessel pulsations or distention. No tenderness. No organomegaly appreciated. Bowel sounds are normally heard. : Deferred. RECTAL: Deferred. LYMPHATIC: No lymphadenopathy noted in the neck. EXTREMITIES: No edema or cyanosis. No clubbing. MUSCULOSKELETAL: No acute joint deformities or swelling SKIN: There are no significant rashes or ecchymosis NEUROPSYCHIATRIC: The patient is alert and oriented x3. Appears to be in a good mood. No tremors or rigidity noted. Data 06/19/23 03:31 06/19/23 03:31 Other Labs: Laboratory Last Values WBC 8.04 10^3/uL (3.29-11.43) 06/18/23 17:10 RBC 5.00 10^6/uL (3.85-5.65) 06/18/23 17:10 Hgb 15.70 g/dL (11.27-16.99) 06/18/23 17:10 Hct 46.7 % (37-53) 06/18/23 17:10 MCV 93.4 fl (82-101) 06/18/23 17:10 MCH 31.4 pg (27-33) 06/18/23 17:10 MCHC 33.6 g/dL (30-55) 06/18/23 17:10 RDW 12.3 % (12.1-15.1) 06/18/23 17:10 Plt Count 166 10^3/cmm (157-399) 06/18/23 17:10 MPV 9.3 fL (7.4-10.4) 06/18/23 17:10 Neut % (Auto) 40.8 % 06/18/23 17:10 Lymph % (Auto) 42.2 % 06/18/23 17:10 [place] % (Auto) 11.4 % 06/18/23 17:10 Eos % (Auto) 5.0 % 06/18/23 17:10 Baso % (Auto) 0.4 % 06/18/23 17:10 Neut # (Auto) 3.28 10^3/uL (1.8-7.7) 06/18/23 17:10 Lymph # (Auto) 3.4 10^3/uL (0.8-4.8) 06/18/23 17:10 [place] # (Auto) 0.9 10^3/uL (0.2-0.9) 06/18/23 17:10 Eos # (Auto) 0.4 10^3/uL (0.0-0.8) 06/18/23 17:10 Baso # (Auto) 0.0 10^3/uL (0.0-0.1) 06/18/23 17:10 Nucleated RBC % (auto) 0 % 06/18/23 17:10 Nucleated RBCs # 0.0 /100WBC 06/18/23 17:10 PT 13.70 SECONDS (12.1-14.9) 06/18/23 17:10 INR 1.02 (0.8-1.2) 06/18/23 17:10 Sodium 138 mmol/L (136-145) 06/18/23 17:10 Potassium 4.2 mmol/L (3.5-5.1) 06/18/23 17:10 Chloride 102 mmol/L (98-107) 06/18/23 17:10 Carbon Dioxide 28 mmol/L (22-29) 06/18/23 17:10 Anion Gap 12.2 (5-19) 06/18/23 17:10 BUN 25 mg/dL (8-23) H 06/18/23 17:10 Creatinine 1.0 mg/dL (0.7-1.2) 06/18/23 17:10 GFR Calculation Not Reportable 06/18/23 17:10 Glucose 94 mg/dL (65-115) 06/18/23 17:10 Calculated Osmolality 290 mOsm/kg (285-295) 06/18/23 17:10 Calcium 9.2 mg/dL (8.5-10.5) 06/18/23 17:10 Total Bilirubin 0.5 mg/dL (0.15-1.2) 06/18/23 17:10 AST 21 U/L (0-40) 06/18/23 17:10 ALT 24 U/L (0-41) 06/18/23 17:10 Alkaline Phosphatase 65 U/L (40-130) 06/18/23 17:10 Troponin T Baseline 20 ng/L (0-15) H 06/18/23 17:10 Troponin T 120 Minute 18.76 ng/L (0-15) H 06/18/23 19:27 Delta Troponin T -1.24 ABS# (0-10) L 06/18/23 19:27 Total Protein 6.8 g/dL (6.6-8.7) 06/18/23 17:10 Albumin 4.5 g/dL (3.5-5.2) 06/18/23 17:10 Globulin 2.3 g/dL (1.3-4.6) 06/18/23 17:10 TSH 2.78 uIU/mL (0.27-4.20) 06/18/23 17:10 Urine Color Yellow (Yellow) 06/18/23 18:19 Urine Appearance Clear (CLEAR) 06/18/23 18:19 Urine pH 5 (5-7) 06/18/23 18:19 Ur Specific [place] 1.010 (1.005-1.030) 06/18/23 18:19 Urine Protein Neg (Negative) 06/18/23 18:19 Urine Glucose (UA) Norm (Normal) 06/18/23 18:19 Urine Ketones Negative (Negative) 06/18/23 18:19 Urine Blood Neg (Negative) 06/18/23 18:19 Urine Nitrate Negative (Negative) 06/18/23 18:19 Urine Bilirubin Neg (Negative) 06/18/23 18:19 Urine Urobilinogen Norm mg/dL (Negative) 06/18/23 18:19 Ur Leukocyte Esterase Negative (Negative) 06/18/23 18:19 Other data: The EKG showed a sinus bradycardia with a rate of 52 bpm. Occasional supraventricular ectopics. A&P Assessment and plan (1) Dizziness: The patient symptoms of dizziness/weakness/lightheadedness is somewhat unexplained. The bradycardia, could be a culprit. Other etiologies cannot be excluded. Patient has no evidence of any orthostatic hypotension at this point. (2) Sinus bradycardia: The lowest heart rate is in the 40s. It is possible that this patient may have a sinus node dysfunction which could be causing some of the symptoms. He also may have a chronotropic incompetence. (3) Diabetes mellitus with neuropathy: Continue on the current medications Qualifiers: Diabetes mellitus intermission coordinator insulin use: without intermission coordinator use Diabetes mellitus type: type 2 Qualified Code(s): E11.40 - Type 2 diabetes mellitus with diabetic neuropathy, unspecified (4) Mixed hyperlipidemia: May continue the current medications (5) Supraventricular arrhythmia: Continue on the current medications. Plan Patient needs to be closely monitored on telemetry. I may go ahead and do a regular treadmill stress test tomorrow to evaluate for chronotropic incompetence. Will be kept n.p.o. after midnight Consult Attestations 2 Medical Necessity Statement: Patient requires continued hospital stay for close monitoring and further management Coding Level of Care Code 70408 Diagnoses Dizziness R42 Sinus bradycardia R00.1 Type 2 diabetes mellitus with diabetic neuropathy, without long-term current use of insulin E11.40 Diabetes mellitus intermission coordinator insulin use: without intermission coordinator use Diabetes mellitus type: type 2 Mixed hyperlipidemia E78.2 Supraventricular arrhythmia I49.9
--- NOTE | 2023-06-18 21:12 | ECG_ITS ---
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 Interpretive Statements NAME OF STUDY: TREADMILL STRESS TEST INDICATION: CHRONOTROPIC INCOMPETENCE, PROCEDURE: The baseline electrocardiogram showed sinus bradycardia with a rate of 50 bpm. Poor R wave progression. Nonspecific T wave changes.. At the baseline, the patient's blood pressure was 128/56 mm Hg with a heart rate of 58. The patient exercised for 5 minutes and 3 seconds on a standard Thierry protocol. Patient attained a maximum heart rate of 127 beats per minute(87% of the maximum predicted heart rate) with a blood pressure at the peak exercise of 165/68 mm Hg. The EKG at the peak exercise revealed some nonspecific ST changes. Patient did not have any chest pain or any significant arrhythmis with the exercise Sestamibi was injected 1 minute prior to the peak exercise During the recovery phase, there were no new changes. Blood pressure at the end of the recovery phase was 158/58 mm Hg with a heart rate of 73 per minute. CONCLUSION: 1. Nonspecific EKG changes with the treadmill exercise 2. No exercise-induced chest pain or cardiac arrhythmia 3. Normal blood pressure and heart rate response to exercise 3. Slightly impaired exercise tolerance, attained a maximum of 7.0 METs 4. Sestamibi/Sestamibi perfusion results pending; see separate report. Electronically Signed On 06-20-2023 20:51:41 SPEECH CLINICIAN by Abimbola Muñoz M.D. [id number]
--- NOTE | 2023-06-18 21:15 | PC.NURSE ---
Attempted to call report, nurse unavailable and will call me back
--- NOTE | 2023-06-18 22:30 | P.HP_ITS ---
Providers/Chief Complaint 2 Admitting Physician: Ricki English MD Primary Care Provider: Checo Garcia DO Chief Complaint: low heart rate, dizzy, weakness History of Present Illness Dave Samson is a 72 year old male with past medical history of diabetes mellitus, dyslipidemia who presents to the emergency room today with several weeks of episodes of disorientation and weakness. Patient states he has intermittent episodes of dizziness especially when attempting to change positions from sitting to standing. Denies any chest pain or dyspnea. He states that he has had episodic bradycardia dating back several years however usually this used to be nocturnal bradycardia which improved for a while after being started on the CPAP for sleep apnea. Recently he has noticed his bradycardic episodes to be occurring in the daytime as well. He is uncertain if his episodes of weakness and dizziness correlated with a drop in the heart rate. No other recent changes in his medication. He has had intentional weight loss by way of lifestyle modification for diabetes mellitus. He was successfully able to bring his A1c down from 8-5.5 after having lost a significant amount of weight. He is fairly active, uses elliptical daily, no complaints of chest pain during exercise. Review of past records shows that patient has had an event monitor placed recently, no I am unable to see the results of that currently. He states that the event monitor was placed only for 1 day. He has previously had an event monitor placed in 2020 which showed bradycardia with heart rate ranging in the 40s and intermittent episodes of sinus tachycardia. He is not currently on any rate limiting medications. No other recent changes in medication. Denies recent fever chills nausea vomiting diarrhea cough etc. Review of Systems 2 General: Reports: 10 or more systems reviewed and unremarkable except in HPI and below Const: Denies: fever(s), chills or body aches Eyes: Denies: change in vision, blurry vision or photophobia ENMT: Reports: hoarseness; Denies: throat pain, enlarged tonsils, odynophagia or nasal congestion Card: Denies: chest pain, palpitations, irregular heart rhythm, edema, swelling of feet/ankles, lightheadedness, pre-syncope, dyspnea on exertion or orthopnea Resp: Denies: dyspnea, productive cough, non-productive cough, wheezing, stridor, pain on inspiration, change in phlegm color, hemoptysis or chest congestion GI: Denies: abdominal pain, nausea, vomiting, hematemesis, coffee ground emesis, dysphagia, heartburn, diarrhea, constipation, GI cramping, change in stool character, hematochezia or melena : Denies: flank pain, dysuria, urinary frequency, urinary urgency, urinary hesitancy or hematuria Musc: Denies: neck pain, back pain, extremity pain, joint swelling, joint warmth or deformity Neuro: Denies: headache(s), numbness in extremities, weakness in extremities, sensory changes, difficulty walking, frequent falls, dizziness, vertigo, behavioral changes, Slurred speech present or seizure-like activity Psych: Denies: anxiety, depression, suicidal ideation or homicidal ideation Endo: Denies: polyuria, polydipsia, tired all the time, cold intolerance or hot flashes Андрей/Lymph: Denies: easy bruising or easy bleeding Medications/Allergies Home Medications Medication Instructions Recorded Confirmed Last Taken Type aspirin 81 mg tablet,delayed 81 mg PO ONCE 04/21/19 06/18/23 06/18/23 05:00 History release ezetimibe 10 mg tablet (Zetia) 10 mg PO ONCE 04/21/19 06/18/23 06/18/23 05:00 History nitroglycerin 0.4 mg sublingual 0.4 mg sublingual Q5M PRN Chest 04/21/19 06/18/23 06/18/23 05:00 History tablet (Nitrostat) Pain vitamin B complex (B 1 tab PO ONCE 04/21/19 06/18/23 06/18/23 05:00 History Complex-Vitamin B12 tablet) azelastine 137 mcg (0.1 %) nasal 1 spray intranasal BID 08/08/21 06/18/23 06/18/23 05:00 History spray aerosol gabapentin 200 mg PO BID 06/18/23 06/18/23 06/18/23 05:00 History metformin 250 mg PO BID 06/18/23 06/18/23 06/18/23 05:00 History Allergies Allergy/AdvReac Type Severity Reaction Status Date / Time No Known Allergies Allergy Verified 10/28/22 22:08 PFSH Acute 2 PFSH: Medical History Mixed hyperlipidemia Benign essential hypertension Diabetes mellitus Family History Mother Diabetes Denies family history of CAD (coronary artery disease) Clotting disorder Dementia Hyperlipidemia Psychiatric illness Chronic kidney disease (CKD) Suicide Anesthesia complication Bleeding disorder Family history of premature coronary artery disease Lung disease Cancer Hypertension Stroke Social History Smoking and tobacco/nicotine status: never used tobacco/nicotine Second hand smoke exposure: No Alcohol intake: current Substance/Drug Use: never Lives independently: Yes Household members: spouse Marital status: service: Yes Current occupational status: employed Pets and animals: Yes Do you think of yourself as: Straight/Heterosexual Current gender identity: Male Vitals/I&O/Wt Last Vital Signs Temp 99.0 F 06/18/23 22:35 Pulse 49 L 06/18/23 22:35 Resp 17 06/18/23 22:35 BP 153/66 06/18/23 22:35 Pulse Ox 100 06/18/23 22:35 O2 Del Method Room Air 06/18/23 22:35 Weight last 48 hrs Weight 87.77 kg Weight 87.77 kg Weight 83.915 kg Physical Exam 2 Narrative: General: No acute distress, AO x3 HEENT: PERRLA, pupils bilaterally equal and reactive, pallors not present Chest: Normal vesicular breath sounds, no added sounds, equal good air entry bilaterally CVS: S1-S2 regular, no murmurs, no tachycardia, no gallops, no rubs Abdomen: Soft, nontender, no organomegaly, bowel sounds present Neuro: No focal deficits, no facial deformity, AO x3, power 5/5 in all limbs Extremities: No edema clubbing or cyanosis Data 06/18/23 17:10 06/18/23 17:10 Other Labs: Radiology Impressions Chest X-Ray 06/18/23 17:08 IMPRESSION: No focal consolidation. Laboratory Results WBC 8.04 10^3/uL (3.29-11.43) 06/18/23 17:10 RBC 5.00 10^6/uL (3.85-5.65) 06/18/23 17:10 Hgb 15.70 g/dL (11.27-16.99) 06/18/23 17:10 Hct 46.7 % (37-53) 06/18/23 17:10 MCV 93.4 fl (82-101) 06/18/23 17:10 MCH 31.4 pg (27-33) 06/18/23 17:10 MCHC 33.6 g/dL (30-55) 06/18/23 17:10 RDW 12.3 % (12.1-15.1) 06/18/23 17:10 Plt Count 166 10^3/cmm (157-399) 06/18/23 17:10 MPV 9.3 fL (7.4-10.4) 06/18/23 17:10 Neut % (Auto) 40.8 % 06/18/23 17:10 Lymph % (Auto) 42.2 % 06/18/23 17:10 [place] % (Auto) 11.4 % 06/18/23 17:10 Eos % (Auto) 5.0 % 06/18/23 17:10 Baso % (Auto) 0.4 % 06/18/23 17:10 Neut # (Auto) 3.28 10^3/uL (1.8-7.7) 06/18/23 17:10 Lymph # (Auto) 3.4 10^3/uL (0.8-4.8) 06/18/23 17:10 [place] # (Auto) 0.9 10^3/uL (0.2-0.9) 06/18/23 17:10 Eos # (Auto) 0.4 10^3/uL (0.0-0.8) 06/18/23 17:10 Baso # (Auto) 0.0 10^3/uL (0.0-0.1) 06/18/23 17:10 Nucleated RBC % (auto) 0 % 06/18/23 17:10 Nucleated RBCs # 0.0 /100WBC 06/18/23 17:10 PT 13.70 SECONDS (12.1-14.9) 06/18/23 17:10 INR 1.02 (0.8-1.2) 06/18/23 17:10 Sodium 138 mmol/L (136-145) 06/18/23 17:10 Potassium 4.2 mmol/L (3.5-5.1) 06/18/23 17:10 Chloride 102 mmol/L (98-107) 06/18/23 17:10 Carbon Dioxide 28 mmol/L (22-29) 06/18/23 17:10 Anion Gap 12.2 (5-19) 06/18/23 17:10 BUN 25 mg/dL (8-23) H 06/18/23 17:10 Creatinine 1.0 mg/dL (0.7-1.2) 06/18/23 17:10 GFR Calculation Not Reportable 06/18/23 17:10 Glucose 94 mg/dL (65-115) 06/18/23 17:10 Calculated Osmolality 290 mOsm/kg (285-295) 06/18/23 17:10 Calcium 9.2 mg/dL (8.5-10.5) 06/18/23 17:10 Total Bilirubin 0.5 mg/dL (0.15-1.2) 06/18/23 17:10 AST 21 U/L (0-40) 06/18/23 17:10 ALT 24 U/L (0-41) 06/18/23 17:10 Alkaline Phosphatase 65 U/L (40-130) 06/18/23 17:10 Troponin T Baseline 20 ng/L (0-15) H 06/18/23 17:10 Troponin T 120 Minute 18.76 ng/L (0-15) H 06/18/23 19:27 Delta Troponin T -1.24 ABS# (0-10) L 06/18/23 19:27 Troponin T Hi Sens 6Hr Delta 1.84 ng/L (0-12) 06/18/23 23:12 Total Protein 6.8 g/dL (6.6-8.7) 06/18/23 17:10 Albumin 4.5 g/dL (3.5-5.2) 06/18/23 17:10 Globulin 2.3 g/dL (1.3-4.6) 06/18/23 17:10 TSH 2.78 uIU/mL (0.27-4.20) 06/18/23 17:10 Urine Color Yellow (Yellow) 06/18/23 18:19 Urine Appearance Clear (CLEAR) 06/18/23 18:19 Urine pH 5 (5-7) 06/18/23 18:19 Ur Specific [place] 1.010 (1.005-1.030) 06/18/23 18:19 Urine Protein Neg (Negative) 06/18/23 18:19 Urine Glucose (UA) Norm (Normal) 06/18/23 18:19 Urine Ketones Negative (Negative) 06/18/23 18:19 Urine Blood Neg (Negative) 06/18/23 18:19 Urine Nitrate Negative (Negative) 06/18/23 18:19 Urine Bilirubin Neg (Negative) 06/18/23 18:19 Urine Urobilinogen Norm mg/dL (Negative) 06/18/23 18:19 Ur Leukocyte Esterase Negative (Negative) 06/18/23 18:19 A&P Assessment and plan (1) Sinus bradycardia: Patient presenting today with several days of intermittent generalized weakness, episodes of dizziness. States that symptoms appear to be worse with positional changes. Will check orthostatic vital signs. Potentially his episodes may be related to bradycardia as noted on EKGs today. Currently at it is sinus bradycardia with heart rate ranging between 40-50 Monitor on telemetry overnight Prior event monitor from 2020 showed episodes of bradycardia and tachycardia, potentially patient may have tachybradycardia syndrome, sick sinus syndrome etc. Cardiology assessment appreciated, plan for stress test tomorrow Currently patient is hemodynamically stable. Blood pressure is well-maintained. Mentation is normal. Closely monitor on telemetry tonight. Troponin series with baseline at 20, 2-hour at 18, negative delta at 2 hours. Low suspicion for ACS. TSH normal. Plan DVT prophylaxis: Lovenox Full code Attestations 2 Medical Necessity Statement*: Anticipate less than 2 midnight stay Coding Level of Care Code Acute Code for Chg Fwd Diagnoses Sinus bradycardia R00.1
[2023-06-18] MEDS: enoxaparin 40 mg/0.4 mL Syringe SUBCUT (23:12)
[2023-06-18 23:47] LABS: Troponin 5 6HR 21.84 ng/L (0-15); Troponin 5 6HR Delta 1.84 ng/L (0-12)
[2023-06-19] VITALS: BP 122/63; PULSE 63; RESP 18; TEMP 36.7; O2SAT 98
[2023-06-19 04:00] VITALS: BP 126/63; PULSE 61; RESP 14; TEMP 36.6; O2SAT 97
[2023-06-19 04:00] LABS: Basophils % 0.5 %; Eosinophils # 0.3 10^3/uL (0.0-0.8); Eosinophils % 5.3 %; Hematocrit 43.8 % (37-53); Lymphocytes # 2.8 10^3/uL (0.8-4.8); Lymphocytes % 43.6 %; Mean Corpuscular HGB Conc 33.8 g/dL (30-55); Mean Corpuscular Hemoglobin 31.6 pg (27-33); Mean Corpuscular Volume 93.4 fl (82-101); Mean Platelet Volume 9.7 fL (7.4-10.4); Monocytes # 0.7 10^3/uL (0.2-0.9); Monocytes % 10.7 %; Neutrophils # 2.53 10^3/uL (1.8-7.7); Neutrophils % 39.6 %; Nucleated Red Blood Cells % 0 %; Platelet Count 164 10^3/cmm (157-399); Red Blood Count 4.69 10^6/uL (3.85-5.65); Red Cell Distribution Width 12.2 % (12.1-15.1); White Blood Count 6.38 10^3/uL (3.29-11.43)
[2023-06-19 04:33] LABS: Alanine Aminotransferase 20 U/L (0-41); Albumin Level 3.7 g/dL (3.5-5.2); Alkaline Phosphatase 50 U/L (40-130); Blood Urea Nitrogen 22 mg/dL (8-23); Calcium 8.8 mg/dL (8.5-10.5); Carbon Dioxide 26 mmol/L (22-29); Chloride 106 mmol/L (98-107); Globulin 2.4 g/dL (1.3-4.6); Glucose 87 mg/dL (65-115); Osmolality Calculated 297 mOsm/kg (285-295); Sodium 142 mmol/L (136-145); Total Bilirubin 0.7 mg/dL (0.15-1.2); Total Protein 6.1 g/dL (6.6-8.7)
[2023-06-19 04:36] LABS: Anion Gap 13.8 (5-19); Aspartate Amino Transferase 19 U/L (0-40); Potassium 3.8 mmol/L (3.5-5.1)
[2023-06-19 08:00] VITALS: BP 128/67; PULSE 59; RESP 11; TEMP 36.6; O2SAT 95
--- NOTE | 2023-06-19 08:50 | PC.CHAP ---
Pastoral Care Encounter/Spiritual Assessment Type of Contact [] Declined master control technician visit [] Patient/Family/Request visit [] Outpatient visit [] Follow-up visit [] Physician referral [] Code/Alert [x] Routine visit [] Staff referral [] Actively dying [] Patient sleeping [] Family support [] [] Out of room [] Palliative care [] [] Receiving care in room [] Pre-surgical visit [] Trauma [] Long length of stay [] ICU visit [] Other: Relational/Emotional Strength [x] Patient feels connected with others/family/visitors/staff [] Distress [] Loneliness/isolation [] Abandonment Spirituality of Patient [] Person of Gabriella [] Attends Pentecostalism of their Gabriella [x] Believes in Prayer [] Reads Bible or Restorationism materials [] There are Spiritual issues to be addressed Grain Farmer Interventions [x] Prayer [x] Active listening [] Non-anxious presence [x] Spiritual/emotional support [] Crisis/trauma care [] Spiritual counseling [] Bereavement support [] Provided bereavement packet [] Provided Bible/devotional materials [] Provided toy/stuffed animal, coloring book to patient or family member [] Provided Communion [] Anointing/[place] [] Salvation [x] Completed spiritual assessment [] Other: Impact on Illness or Injury [] Angry [] Fearful [] Anxious [] Often cries [] Exhaustion [] Unable to work [] Unable to attend buddhist [] Unable to walk/stand [] Unable to read [] Unable to drive [] Unable to eat/drink [] Unable to sleep [] Unable to be with family [] Patient intubated [] Other: Summary Time spent with patient 5 min
--- NOTE | 2023-06-19 09:21 | P.PN_ITS ---
Subjective 2 Subjective: Patient this morning was dressed up sitting at the bedside I did evaluate him when he was standing up He felt he is lightheaded he is not describing his dizziness as regarding the spinning History of bradycardic Vitals/I&O/Wt Last Vital Signs Temp 97.9 F 06/19/23 08:00 Pulse 59 L 06/19/23 08:00 Resp 11 L 06/19/23 08:00 BP 128/67 06/19/23 08:00 Pulse Ox 95 06/19/23 08:00 O2 Del Method Room Air 06/19/23 08:00 06/18/23 06/19/23 06/19/23 22:59 06:59 14:59 Intake Total 200 / 200 Output Total 400 / 400 Balance -200 / -200 Weight last 48 hrs Weight 86.636 kg Weight 87.77 kg Weight 87.77 kg Weight 83.915 kg Physical Exam 2 Narrative: Awake and alert Euvolemic Pleasant GCS 15 Very pleasant cooperative S1, S2 I did not appreciate any murmur Currently on room air Hard of hearing Wearing hearing aids Data 06/19/23 03:31 06/19/23 03:31 A&P Assessment and plan (1) Hypertension: (2) Sinus bradycardia: (3) Tachy-ana maría syndrome: (4) Diabetes mellitus with neuropathy: Qualifiers: Diabetes mellitus type: type 2 Diabetes mellitus fdc insulin use: without extermination supervisor use Qualified Code(s): E11.40 - Type 2 diabetes mellitus with diabetic neuropathy, unspecified (5) Sleep paralysis: (6) Onychodystrophy: Plan Sinus bradycardia Patient not on any AV emily blocking agent Concern for tachybradycardia syndrome Chronotropic competence to be checked by stress test I will check if patient has vertigo we will request PT for evaluation EKG unremarkable TSH unremarkable Active chest pain No significant delta troponin If cardiology is not planning for any intervention he might have to go home with a event monitor Patient stating that his neuropathy makes things worse I will check B12 level Attestations 2 Medical Necessity Statement*: Continue medical management Diagnoses Hypertension I10 Sinus bradycardia R00.1 Tachy-ana maría syndrome I49.5 Type 2 diabetes mellitus with diabetic neuropathy, without long-term current use of insulin E11.40 Diabetes mellitus type: type 2 Diabetes mellitus fdc insulin use: without fdc use Sleep paralysis G47.8 Onychodystrophy L60.3
--- NOTE | 2023-06-19 09:42 | PC.NURSE ---
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 Patient hooked up to telemetry. All vitals WNL
[2023-06-19 11:13] LABS: Vitamin B12 590 pg/mL (232-1245)
[2023-06-19 11:14] VITALS: PULSE 62
[2023-06-19 11:22] VITALS: BP 158/58; PULSE 66
--- NOTE | 2023-06-19 12:13 | PM.DCS ---
Discharge Providers Date of Admission: 06/18/23 21:00 Date of Discharge: June 19, 2023 Attending Provider at Admission: Ricki English MD Attending Provider at Discharge: Dale Butterfield MD Primary Care Provider: Checo Garcia DO Diagnoses at Discharge Discharge Diagnosis (1) Hypertension: Status: Acute (2) Sinus bradycardia: Status: Acute (3) Tachy-ana maría syndrome: Status: Acute (4) Diabetes mellitus with neuropathy: Status: Acute Qualifiers: Diabetes mellitus mcc insulin use: without mcc use Diabetes mellitus type: type 2 Qualified Code(s): E11.40 - Type 2 diabetes mellitus with diabetic neuropathy, unspecified (5) Sleep paralysis: Status: Acute (6) Onychodystrophy: Status: Acute Reason for Visit Reason for Visit: low heart rate, dizzy, weakness Hospital Course Hospital Course 72 male who was admitted for management evaluation of generalized weakness and fatigue, he was diagnosed with sinus bradycardia, stress test was done to learn more about his chronotropic incompetence, Dr. Muñoz was consulted, patient is not on AV emily blocking agent, TSH normal, he is hemodynamically stable, Dr. Muñoz has not recommended event monitor or Holter at this point, he had appropriate response to treadmill with increase of heart rate and blood pressure, he does believe that this is related to vertigo at this point I will add meclizine and have him follow-up with Dr. Felix outpatient. His B12 level was normal Physical Exam Narrative: Awake and alert GCS 15 S1, S2 Hypertensive Pleasant cooperative Currently on room air Discharge Data Studies Completed and Pending Completed Studies During Hospitalization Category Date Time Status Cardiac Stress Test Request Routine Exams 06/18/23 21:12 Draft XR chest 1V portable [id number] Stat Exams 06/18/23 17:08 Completed Radiology Impressions Chest X-Ray 06/18/23 17:08 IMPRESSION: No focal consolidation. Laboratory Results WBC 6.38 10^3/uL (3.29-11.43) 06/19/23 03:31 RBC 4.69 10^6/uL (3.85-5.65) 06/19/23 03:31 Hgb 14.80 g/dL (11.27-16.99) 06/19/23 03:31 Hct 43.8 % (37-53) 06/19/23 03:31 MCV 93.4 fl (82-101) 06/19/23 03:31 MCH 31.6 pg (27-33) 06/19/23 03:31 MCHC 33.8 g/dL (30-55) 06/19/23 03:31 RDW 12.2 % (12.1-15.1) 06/19/23 03:31 Plt Count 164 10^3/cmm (157-399) 06/19/23 03:31 MPV 9.7 fL (7.4-10.4) 06/19/23 03:31 Neut % (Auto) 39.6 % 06/19/23 03:31 Lymph % (Auto) 43.6 % 06/19/23 03:31 [place] % (Auto) 10.7 % 06/19/23 03:31 Eos % (Auto) 5.3 % 06/19/23 03:31 Baso % (Auto) 0.5 % 06/19/23 03:31 Neut # (Auto) 2.53 10^3/uL (1.8-7.7) 06/19/23 03:31 Lymph # (Auto) 2.8 10^3/uL (0.8-4.8) 06/19/23 03:31 [place] # (Auto) 0.7 10^3/uL (0.2-0.9) 06/19/23 03:31 Eos # (Auto) 0.3 10^3/uL (0.0-0.8) 06/19/23 03:31 Baso # (Auto) 0.0 10^3/uL (0.0-0.1) 06/19/23 03:31 Nucleated RBC % (auto) 0 % 06/19/23 03:31 Nucleated RBCs # 0.0 /100WBC 06/19/23 03:31 PT 13.70 SECONDS (12.1-14.9) 06/18/23 17:10 INR 1.02 (0.8-1.2) 06/18/23 17:10 Sodium 142 mmol/L (136-145) 06/19/23 03:31 Potassium 3.8 mmol/L (3.5-5.1) 06/19/23 03:31 Chloride 106 mmol/L (98-107) 06/19/23 03:31 Carbon Dioxide 26 mmol/L (22-29) 06/19/23 03:31 Anion Gap 13.8 (5-19) 06/19/23 03:31 BUN 22 mg/dL (8-23) 06/19/23 03:31 Creatinine 0.9 mg/dL (0.7-1.2) 06/19/23 03:31 GFR Calculation Not Reportable 06/19/23 03:31 Glucose 87 mg/dL (65-115) 06/19/23 03:31 Calculated Osmolality 297 mOsm/kg (285-295) H 06/19/23 03:31 Calcium 8.8 mg/dL (8.5-10.5) 06/19/23 03:31 Total Bilirubin 0.7 mg/dL (0.15-1.2) 06/19/23 03:31 AST 19 U/L (0-40) 06/19/23 03:31 ALT 20 U/L (0-41) 06/19/23 03:31 Alkaline Phosphatase 50 U/L (40-130) 06/19/23 03:31 Troponin T Baseline 20 ng/L (0-15) H 06/18/23 17:10 Troponin T 120 Minute 18.76 ng/L (0-15) H 06/18/23 19:27 Delta Troponin T -1.24 ABS# (0-10) L 06/18/23 19:27 Troponin T Hi Sens 6Hr 21.84 ng/L (0-15) H 06/18/23 23:12 Troponin T Hi Sens 6Hr Delta 1.84 ng/L (0-12) 06/18/23 23:12 Total Protein 6.1 g/dL (6.6-8.7) L 06/19/23 03:31 Albumin 3.7 g/dL (3.5-5.2) 06/19/23 03:31 Globulin 2.4 g/dL (1.3-4.6) 06/19/23 03:31 Vitamin B12 590 pg/mL (232-1245) 06/19/23 03:31 TSH 2.78 uIU/mL (0.27-4.20) 06/18/23 17:10 Urine Color Yellow (Yellow) 06/18/23 18:19 Urine Appearance Clear (CLEAR) 06/18/23 18:19 Urine pH 5 (5-7) 06/18/23 18:19 Ur Specific [place] 1.010 (1.005-1.030) 06/18/23 18:19 Urine Protein Neg (Negative) 06/18/23 18:19 Urine Glucose (UA) Norm (Normal) 06/18/23 18:19 Urine Ketones Negative (Negative) 06/18/23 18:19 Urine Blood Neg (Negative) 06/18/23 18:19 Urine Nitrate Negative (Negative) 06/18/23 18:19 Urine Bilirubin Neg (Negative) 06/18/23 18:19 Urine Urobilinogen Norm mg/dL (Negative) 06/18/23 18:19 Ur Leukocyte Esterase Negative (Negative) 06/18/23 18:19 Vitals Last Vital Signs Temp 97.9 F 06/19/23 08:00 Pulse 66 06/19/23 11:22 Resp 11 L 06/19/23 08:00 BP 158/58 06/19/23 11:22 Pulse Ox 95 06/19/23 08:00 O2 Del Method Room Air 06/19/23 08:00 Discharge Plan Discharge Patient Disposition: Home Condition: Stable Prescriptions: Continued aspirin 81 mg tablet,delayed release (DR/EC) 81 mg PO ONCE nitroglycerin [Nitrostat] 0.4 mg tablet, sublingual 0.4 mg SUBLINGUAL Q5M PRN (Reason: Chest Pain) vitamin B complex [B Complex-Vitamin B12] Tablet 1 tab PO ONCE ezetimibe [Zetia] 10 mg tablet 10 mg PO ONCE azelastine 137 mcg (0.1 %) aerosol,spray 1 spray intranasal BID Rx Instructions: administer into each nostril gabapentin capsule 200 mg PO BID metformin 250 mg PO BID Discharge Orders: Discharge Order (Routine); Ordered 06/19/23 Ordered By: Dale Butterfield Referrals: Kadie Brown FNP [Nurse Practitioner] - 07/08/23 2:00 pm Checo Garcia DO [Primary Care Provider] - (Please call Dr. Garcia's Office on Thursday at [phone] to schedule a follow up appointment. Thank you.) Patient Instructions: Opioid Safety Discharge Attestations Time Spent in Discharge Care*: other Quality Metrics Clinical Quality Measures [ No reported AMI, CVA or VTE this stay] Coding Level of Care Code Acute Code for Chg Fwd Diagnoses Hypertension I10 Sinus bradycardia R00.1 Tachy-ana maría syndrome I49.5 Type 2 diabetes mellitus with diabetic neuropathy, without long-term current use of insulin E11.40 Diabetes mellitus terminal press operator insulin use: without terminal press operator use Diabetes mellitus type: type 2 Sleep paralysis G47.8 Onychodystrophy L60.3
--- NOTE | 2023-06-19 13:35 | PC.NURSE ---
Unable to obtain discharge vitals due to patient refusal.
--- NOTE | 2023-06-19 13:36 | PC.NURSE ---
Patient stated he had meclizine at home and did not wish for it to transmitted to the pharmacy.
--- NOTE | 2023-06-19 15:17 | P.PN_ITS ---
Subjective 2 Subjective: This patient remained stable throughout the hospital course. He was having some episodes of dizziness but no syncopal episode. No significant bradycardia arrhythmia. He had a regular treadmill exercise test yesterday. His heart rate and blood pressure aspirin appropriately. He attained a maximal heart rate in 5 minutes. The test was done on a standard Thierry protocol. No significant ischemic changes. Vitals/I&O/Wt Last Vital Signs Temp 97.9 F 06/19/23 08:00 Pulse 66 06/19/23 11:22 Resp 11 L 06/19/23 08:00 BP 158/58 06/19/23 11:22 Pulse Ox 95 06/19/23 08:00 O2 Del Method Room Air 06/19/23 08:00 06/19/23 06/19/23 06/19/23 06:59 14:59 22:59 Intake Total 200 / 200 Output Total 400 / 400 Balance -200 / -200 Weight last 48 hrs Weight 191 lb Weight 193 lb 8 oz Weight 193 lb 8 oz Weight 185 lb Physical Exam 2 Narrative: GENERAL: The patient is alert and oriented times three. Not in any acute distress. HEENT: No significant pallor, icterus or lymphadenopathy.Oral cavity: There are no mucous membrane lesions. NECK: Trachea appears to be central. No masses noted. No JVD or thyromegaly appreciated. RESPIRATORY: Chest is symmetrical. No intercostals muscle retraction or any accessory muscle activation. There is no chest wall tenderness. Breath sounds are heard bilaterally. No rales or rhonchi heard. No evidence of any consolidation. BREASTS: Deferred. HEART: The heart sounds are normal. No S3 or S4. No significant murmurs. No pericardial rub ABDOMEN: No vessel pulsations or distention. No tenderness. No organomegaly appreciated. Bowel sounds are normally heard. : Deferred. RECTAL: Deferred. LYMPHATIC: No lymphadenopathy noted in the neck. EXTREMITIES: No edema or cyanosis. No clubbing. MUSCULOSKELETAL: No acute joint deformities or swelling SKIN: There are no significant rashes or ecchymosis NEUROPSYCHIATRIC: The patient is alert and oriented x3. Appears to be in a good mood. No tremors or rigidity noted. Data 06/19/23 03:31 06/19/23 03:31 A&P Assessment and plan (1) Dizziness: The patient symptoms of dizziness/weakness/lightheadedness is somewhat unexplained. He did not have any significant bradycardia arrhythmia to explain the symptoms. Patient seems to have some vertiginous symptoms with the positional changes. It is very possible that this could be a culprit. (2) Sinus bradycardia: So far it is not convincing that the bradycardia is causing many of the symptoms. Patient may have an an element of sinus emily dysfunction. (3) Diabetes mellitus with neuropathy: Continue on the current medications Qualifiers: Diabetes mellitus type: type 2 Diabetes mellitus skilled nursing insulin use: without dedicated intermodal truck driver use Qualified Code(s): E11.40 - Type 2 diabetes mellitus with diabetic neuropathy, unspecified (4) Mixed hyperlipidemia: May continue the current medications (5) Supraventricular arrhythmia: Continue on the current medications. Plan If the patient continues to remain stable, may be discharged home from a cardiac standpoint. It might be appropriate for him to have an ENT consult to evaluate his vertiginous symptoms. Patient has an appointment to see Dr. Felix in 6 weeks. Advised to keep this appointment. Attestations 2 Medical Necessity Statement*: Disposition as per the primary Coding Level of Care Code 80993 Diagnoses Dizziness R42 Sinus bradycardia R00.1 Type 2 diabetes mellitus with diabetic neuropathy, without long-term current use of insulin E11.40 Diabetes mellitus type: type 2 Diabetes mellitus skilled nursing insulin use: without skilled nursing use Mixed hyperlipidemia E78.2 Supraventricular arrhythmia I49.9
== END 2023-06-19 12:38 | disposition home or self-care (01) ==
LOC: ER 19:17 → CSU 21:01
PROVIDERS: Student in an Organized Health Care Education/Training Program; Admitting Provider Student in an Organized Health Care Education/Training Program; Emergency Provider Emergency Medicine; PCP Internal Medicine; Visit Provider Internal Medicine
DX: I49.5 Sick sinus syndrome (principal); I10 Essential (primary) hypertension; E11.40 Type 2 diabetes mellitus with diabetic neuropathy, unspecified; G47.8 Other sleep disorders; L60.3 Nail dystrophy; G47.30 Sleep apnea, unspecified; Z79.82 Long term (current) use of aspirin; E78.2 Mixed hyperlipidemia
CPT/HCPCS: 36415; 71045; 80053; 81003; 82607; 84443; 84484; 85025; 85610; 93005; 93017; 96372; 97161; 99285; G0378; J1650

== ENCOUNTER → 2023-07-29 13:15 | Outpatient (BNVA) | payer MEDICARE, SELFPAY | PROVIDERS: PCP Internal Medicine; Referring Provider Physician Assistant; Visit Provider Internal Medicine | DX: R00.1 Bradycardia, unspecified (principal); G47.8 Other sleep disorders; E11.40 Type 2 diabetes mellitus with diabetic neuropathy, unspecified; I10 Essential (primary) hypertension; Z79.84 Long term (current) use of oral hypoglycemic drugs | CPT/HCPCS: 99204 ==

== ENCOUNTER 2023-08-25 12:21 | Outpatient (CLI) | payer MEDICARE, OTHER, SELFPAY ==
--- NOTE | 2023-08-25 12:39 | MR_ITS ---
WS: [id number] MRI LUMBAR SPINE NONCONTRAST HISTORY: spinal stenosis COMPARISON: None available. TECHNIQUE: Sagittal and axial multisequence imaging is submitted. 2 mm retrolisthesis of L4. No fractures. Mild marrow edema in the adjacent endplates of L5 and S1. Disc spaces are all narrowed and desiccated. Conus terminates normally at L1. L1-L2: Normal. L2-L3: Mild annular disc bulging, asymmetric to the LEFT. Mild facet and ligamentum flavum hypertroph y. No stenosis. L3-L4: Mild annular disc bulging with osteophytic ridging, ligamentum flavum and facet arthritis. Mil d disc encroachment upon the subarticular recesses and the traversing L4 nerve roots. Mild bilateral foraminal stenosis, LEFT greater than RIGHT. L4-L5: Diffuse annular disc bulging with a LEFT paracentral disc protrusion. Disc protrusion is conta cting the traversing LEFT L5 nerve root. Mild osteophytic ridging. Ligamentum flavum and facet arthri tis. Fluid in the facet joints. There is a small multiloculated RIGHT facet joint cyst extending late rally. Mild bilateral foraminal stenosis. L5-S1: Diffuse annular disc bulging and osteophytic ridging. Marked disc bulging contacting the S1 ne rve roots and extending into the foramina. No central stenosis. There is mild encroachment upon the S 1 nerve roots and moderate to severe foraminal stenosis. There is disc contact on the exiting L5 nerv e roots. MR/MR lumbar spine wo con* [id number] IMPRESSION: 1. Moderate diffuse spondylosis. 2. L5-S1: Moderate to severe bilateral foraminal stenosis and mild subarticula r recess stenosis. Significant disc contacting the exiting L5 nerve roots. 3. L4-5: LEFT paracentral disc protrusion contacting the traversing LEFT L5 ne rve root. Mild bilateral foraminal stenosis. 4. L3-4: Mild bilateral foraminal stenosis, LEFT greater than RIGHT.
== END 2023-08-25 12:22 | disposition home or self-care (01) ==
LOC: RAD 12:21
PROVIDERS: PCP Family Medicine; Visit Provider Family Medicine
DX: M48.062 Spinal stenosis, lumbar region with neurogenic claudication (principal); M48.07 Spinal stenosis, lumbosacral region
CPT/HCPCS: 72148

== ENCOUNTER 2024-10-03 13:15 | Outpatient (CLI) | payer MEDICARE, OTHER, SELFPAY ==
--- NOTE | 2024-10-03 13:19 | USCV_ITS ---
Dave Samson Age: 74 Gender: M : 1950 Exam Date: 10/03/2024 13:48 Ordering Phys: Sourav Le MD Technologist: R Exam Location: [facility] [place] Indication: dizziness Risk Factors: Previous Vascular Surgery: Right Brachial BP: / Left Brachial BP: / Right Left Velocity (cm/s) Spectral Plaque Velocity (cm/s) Spectral Plaque Syst/Diast Broadening Syst/Diast Broadening 94.20/ 16.10 Prox CCA 117.90/ 15.90 99.00/ 14.20 Mid CCA 110.70/ 12.30 100.80/14.20 Distal CCA 123.30/ 12.30 102.60/19.70 Prox ICA 83.90 / 14.10 104.40/25.10 Mid ICA 80.30 / 19.50 96.90/ 23.20 Distal ICA 76.60 / 19.50 140.50 ECA 126.80 1.00 ICA/CCA 0.70 Antegrade Vertebral Antegrade 55.60/ 10.60 cm/s 38.90/ 6.80 cm/s Tri Subclavian Tri 38.60 148.9 0 FINDINGS Comparison: none available. No significant elevation of systolic or diastolic velocities. Waveforms are normal. Mild, bilateral scattered calcified plaque and intimal thickening throughout the common carotid arteries and extending through the bifurcation. CONCLUSIONS Bilateral ICA stenosis less than 50%. Dr. Maya Zaldivar DO (Electronically Signed) Final Date: 03 October 2024 15:05 S
== END 2024-10-03 13:16 | disposition home or self-care (01) ==
LOC: RAD 13:16
PROVIDERS: PCP Family Medicine; Visit Provider Family Medicine
DX: I65.23 Occlusion and stenosis of bilateral carotid arteries (principal)
CPT/HCPCS: 93880

== ENCOUNTER → 2024-11-02 13:32 | Outpatient (BNVA) | payer MEDICARE, OTHER, SELFPAY | PROVIDERS: PCP Family Medicine; Visit Provider Internal Medicine | DX: R00.1 Bradycardia, unspecified (principal); I10 Essential (primary) hypertension; E11.40 Type 2 diabetes mellitus with diabetic neuropathy, unspecified; Z79.84 Long term (current) use of oral hypoglycemic drugs; G47.53 Recurrent isolated sleep paralysis; Z79.82 Long term (current) use of aspirin | CPT/HCPCS: 99213 ==